=== PATIENT | female | born 2000 | race Caucasian/White ===

== ENCOUNTER 2019-02-12 12:19 | Emergency (ER) | payer OTHER ==
[2019-02-12] MEDS ORDERED: Famotidine IV* 10 MG/ML 2 ML (20 mg) ONE (12:27)
--- NOTE | 2019-02-12 12:45 | ED ---
Syncope/Near Syncope - HPI Summary HPI Summary: This patient is a 18 year old female presenting to [facility] with a chief complaint of weakness and rash since this morning. She states she felt disoriented and dizzy and felt like the ground was moving. She also reports she experienced skin diaphoresis, throat tightness and SOB. She denies numbness/tingling. She denies loss of consciousness. She states she has had a reaction like this to prednisone but does not know if she could have ingested anything to cause this episode. Pt denies any fever, chills, erythema of eyes, CP, cough, abdominal pain, N/V, dysuria, hematuria, myalgia, or edema. - History Of Current Complaint Chief Complaint: EDAllergicReaction Time Seen by Provider: 02/12/19 12:32 Hx Obtained From: Patient Onset/Duration: Lasting Hours - Allergies/Home Medications Allergies/Adverse Reactions: Allergies Allergy/AdvReac Type Severity Reaction Status Date / Time prednisone Allergy Difficulty Verified 02/12/19 12:22 Breathing Home Medications: Home Medications Unobtainable 02/12/19 [History Confirmed 02/12/19] PMH/Surg Hx/FS Hx/Imm Hx Cardiovascular History: Denies: Hx Coronary Artery Disease Respiratory History: Denies: Hx Chronic Obstructive Pulmonary Disease (COPD) Infectious Disease History: No Infectious Disease History: Denies: Traveled Outside the [place] in Last 30 Days - Family History Known Family History: Positive: Non-Contributory - Social History Occupation: Employed Full-time Alcohol Use: None Substance Use Type: Reports: None Smoking Status (MU): Never Smoked Tobacco Review of Systems Positive: Skin Diaphoresis. Negative: Fever, Chills Negative: Erythema Positive: Sore Throat Negative: Chest Pain Positive: Shortness Of Breath. Negative: Cough Negative: Abdominal Pain, Vomiting, Nausea Negative: dysuria, hematuria Negative: Myalgia, Edema Positive: Rash Neurological: Other - Dizziness Positive: Weakness, Syncope - Near-syncopal episdoe no LOC . Negative: Paresthesia, Numbness All Other Systems Reviewed And Are Negative: No Physical Exam - Summary Physical Exam Summary: Constitutional: Well-developed, Well-nourished, Alert. (-) Distressed Skin: Warm, Dry. No hives. HENT: Normocephalic; Atraumatic Eyes: Conjunctiva normal Neck: Musculoskeletal ROM normal neck. (-) JVD, (-) Stridor, (-) Tracheal deviation Cardio: Rhythm regular, rate normal, Heart sounds normal; Intact distal pulses; The pedal pulses are 2+ and symmetric. Radial pulses are 2+ and symmetric. (-) Murmur Pulmonary/Chest wall: Effort normal. (-) Respiratory distress, (-) Wheezes, (-) Rales. No stridor. Voice quality is normal. Abd: Soft. (-) Tenderness, (-) Distension, (-) Guarding, (-) Rebound Musculoskeletal: (-) Edema Lymph: (-) Cervical adenopathy Neuro: Alert, Oriented x3, Strength normal, Cranial nerves II-XII are grossly intact. (-) Dysmetria, (-) Nystagmus, (-) Ataxia by finger to nose testing, (-) Sensory deficit. Psych: Mood and affect Normal Triage Information Reviewed: Yes Vital Signs On Initial Exam: Initial Vitals Temp Pulse Resp BP Pulse Ox 98.5 F 89 20 137/87 100 02/12/19 12:23 02/12/19 12:23 02/12/19 12:23 02/12/19 12:23 02/12/19 12:23 Vital Signs Reviewed: Yes Diagnostics - Vital Signs Vital Signs Temp Pulse Resp BP Pulse Ox 02/12/19 12:23 98.5 F 89 20 137/87 100 - Laboratory Result Diagrams: 02/12/19 13:05 02/12/19 13:05 Lab Statement: Any lab studies that have been ordered have been reviewed, and results considered in the medical decision making process. - EKG 1259 Cardiac Rate: NL - 83 VPM EKG Rhythm: Sinus Rhythm Re-Evaluation - Re-Evaluation First Eval Re-Evaluation Time: 14:45 Change: Improved - feels better, informed she can't drive for another 1-2 hours. States she doesnt have anyone we can call fo ra ride. Her car is here. Course/Dx Course Of Treatment: This patient is a 18 year old female presenting to [facility] with a chief complaint of weakness and rash. I am unable to visualize a rash. there is no stridor. I do not suspect anaphylaxis. The patient describes hyperventilation symptoms. Also some symptoms of orthostasis. She reports a significant anxiety and panic attack history. CBC and chemistries nonactionable , no evidence for arrhythmia on EKG. - Diagnoses Provider Diagnoses: Dizziness, Anxiety Discharge ED - Sign-Out/Discharge Documenting (check all that apply): Patient Departure Patient Received Moderate/Deep Sedation with Procedure: No - Discharge Plan Condition: Good Disposition: HOME Patient Education Materials: Dizziness (ED), Anxiety (ED) Forms: *Work Release Referrals: [facility] [Outside] - 2 Days Additional Instructions: Return to the ER for changing or worsening condition. - Billing Disposition and Condition Condition: GOOD Disposition: Home - Attestation Statements Document Initiated by Scribe: Yes Documenting Scribe: Dontae Santiago Provider For Whom Scribe is Documenting (Include Credential): Chris Choudhary MD Scribe Attestation: Dontae Boo, scribed for Chris Choudhary MD on 02/18/19 at 1137. Scribe Documentation Reviewed: Yes Provider Attestation: The documentation as recorded by the Dontae lopez accurately reflects the service I personally performed and the decisions made by Chris pastor MD Status of Scribe Document: Viewed
[2019-02-12] MEDS ORDERED: Lorazepam PYXIS KEY PRN (12:49)
[2019-02-12] MEDS ORDERED: LORazepam INJ* 2 MG/ML 1 ML VIAL IV PUSH ONE (12:49)
[2019-02-12] MEDS ORDERED: diPHENhydraMINE IV* 50 MG/ML 1 ml VIAL (BENADRYL) IV ONE (12:49)
[2019-02-12] MEDS ORDERED: NS 0.9% 1000 ML** 1,000 ML IV ONE (12:49)
[2019-02-12 13:14] LABS: ABS Eosinophils 0.1 10^3/ul (0-0.6); ABS Lymphocytes 2.8 10^3/ul (1.0-4.8); ABS Monocytes 0.4 10^3/ul (0-0.8); Hematocrit 39 % (35-47); Lymphocyte % 44.1 %; Mean Corpuscular HGB Conc 33 g/dL (31-36); Mean Corpuscular Hemoglobin 28 pg (27-31); Mean Corpuscular Volume 82 fL (80-97); Mean Platelet Volume 8.2 fL (7.4-10.4); Platelet Count 298 10^3/uL (150-450); Red Blood Count 4.72 10^6 /uL (3.70-4.87); Red Cell Distribution Width 15 % (10-15); White Blood Count 6.3 10^3/uL (3.5-10.8)
[2019-02-12 13:32] LABS: Albumin 4.3 g/dL (3.2-5.2); Albumin/Globulin Ratio 1.5 (1-3); Calcium 9.2 mg/dL (8.6-10.3); EGFR African American 107.2 (>60); EGFR Non-African American 88.6 (>60); Globulin 2.8 g/dL (2-4); Potassium 3.9 mmol/L (3.5-5.0); Total Bilirubin 0.3 mg/dL (0.2-1.0); Total Protein 7.1 g/dL (6.4-8.9)
[2019-02-12 13:38] LABS: HCG Pregnancy 5.4 mIU/mL
[2019-02-12] MEDS ORDERED: Dexamethasone IV* 4 MG/ML 1 ML (4 MG) IV SLOW PU ONE (13:50)
[2019-02-12] MEDS ORDERED: guaiFENesin/CODIEN 100MG-10MG* 5 ML UDC PO ONE (13:51)
[2019-02-12] MEDS ORDERED: Magnesium Sulfate 2 GM IV* 2 GM/50 ML BAG IVPB ONE (13:51)
[2019-02-12 15:01] VITALS: BP 113/77
== END 2019-02-12 15:00 | disposition home or self-care (01) ==
LOC: ED 12:19
DX: R42 Dizziness and giddiness (principal); F41.9 Anxiety disorder, unspecified; R21 Rash and other nonspecific skin eruption; Z88.8 Allergy status to other drugs, medicaments and biological substances
CPT/HCPCS: 36415; 80053; 83605; 83690; 84702; 85025; 93005; 96361; 96374; 96375; 99284; J1200; J2060

== ENCOUNTER 2019-03-06 22:24 | Emergency (ER) | payer BC, OTHER ==
[2019-03-06] MEDS ORDERED: Lidocaine 2% VISCOUS* 15 ML UDC PO ONE (22:59)
--- NOTE | 2019-03-06 23:00 | ED ---
Influenza-Like Illness - HPI Summary HPI Summary: Patient complains of fever up to 102, sore throat, weakness, chills, sweats, DELANEY , nausea 3 days. Patient seen at urgent care today, negative for flu, negative for strep. Patient presents to the ED stating she thinks she is Serious infection. Patient took ibuprofen 800 mg at 9:40 PM. Denies cough, ear pain, neck pain, CP, SOB, V/V abdominal pain, change in urine, change in BM , vaginal symptoms. Medical history is none. - History of Current Complaint Chief Complaint: EDFever Time Seen by Provider: 03/06/19 22:58 Hx Obtained From: Patient Onset/Duration: Gradual Onset, Lasting Days Severity: Moderate Associated Signs & Symptoms: Fever, Myalgia, Sore Throat - Allergy/Home Medications Allergies/Adverse Reactions: Allergies Allergy/AdvReac Type Severity Reaction Status Date / Time prednisone Allergy Difficulty Verified 03/06/19 22:29 Breathing PMH/Surg Hx/FS Hx/Imm Hx Endocrine/Hematology History: Denies: Hx Anticoagulant Therapy Cardiovascular History: Denies: Hx Coronary Artery Disease, Hx Pacemaker/ICD Respiratory History: Denies: Hx Chronic Obstructive Pulmonary Disease (COPD) History: Denies: Hx Dialysis Sensory History: Denies: Hx Eye Prosthesis Opthamlomology History: Denies: Hx Legally Blind EENT History: Denies: Hx Deafness Neurological History: Denies: Hx Developmental Delay Infectious Disease History: No Infectious Disease History: Denies: Traveled Outside the [place] in Last 30 Days - Family History Known Family History: Positive: Non-Contributory - Social History Alcohol Use: None Substance Use Type: Reports: None Smoking Status (MU): Never Smoked Tobacco Review of Systems Positive: Fever, Chills Positive: Sore Throat Cardiovascular: Negative Respiratory: Negative Positive: Nausea Genitourinary: Negative Positive: Myalgia Skin: Negative Positive: Headache Psychological: Normal All Other Systems Reviewed And Are Negative: Yes Physical Exam Triage Information Reviewed: Yes Vital Signs On Initial Exam: Initial Vitals Temp Pulse Resp BP Pulse Ox 97.7 F 84 15 117/76 100 03/06/19 22:27 03/06/19 22:27 03/06/19 22:27 03/06/19 22:27 03/06/19 22:27 Vital Signs Reviewed: Yes Appearance: Positive: Well-Appearing Skin: Positive: Warm Head/Face: Positive: Normal Head/Face Inspection Eyes: Positive: Normal ENT: Positive: Pharyngeal erythema, Uvula midline. Negative: Tonsillar exudate , Trismus, Muffled voice, Hoarse voice, Dental tenderness, Sinus tenderness Neck: Positive: Supple Respiratory/Lung Sounds: Positive: Clear to Auscultation Cardiovascular: Positive: Normal Abdomen Description: Positive: Nontender Musculoskeletal: Positive: Normal Neurological: Positive: Normal Psychiatric: Positive: Normal AVPU Assessment: Alert - [place] Coma Scale Best Eye Response: 4 - Spontaneous Best Motor Response: 6 - Obeys Commands Best Verbal Response: 5 - Oriented Coma Scale Total: 15 Procedures - Sedation Patient Received Moderate/Deep Sedation with Procedure: No Diagnostics - Vital Signs Vital Signs Temp Pulse Resp BP Pulse Ox 03/06/19 22:27 97.7 F 84 15 117/76 100 - Laboratory Result Diagrams: 03/06/19 23:14 03/06/19 23:14 Lab Statement: Any lab studies that have been ordered have been reviewed, and results considered in the medical decision making process. Flu Symptom Course/Dx - Course Course Of Treatment: Patient complains of fever up to 102, sore throat, weakness , chills, sweats, DELANEY, nausea 3 days. Patient seen at urgent care today, negative for flu, negative for strep. Patient presents to the ED stating she thinks she is Serious infection. Patient took ibuprofen 800 mg at 9:40 PM. Denies cough, ear pain, neck pain, CP, SOB, V/V abdominal pain, change in urine , change in BM, vaginal symptoms. Medical history is none. Vital signs within normal limits. WBC 12.1. CRP 191. Labs otherwise unremarkable. Harmon negative. Discussed patient with attending Dr. Paige who agreed patient to be discharged home with symptomatic treatment. Diagnosis viral syndrome. - Diagnoses Provider Diagnoses: Viral syndrome Discharge ED - Sign-Out/Discharge Documenting (check all that apply): Patient Departure - Discharge Plan Condition: Stable Disposition: HOME Prescriptions: Lidocaine 2% VISCOUS* [Xylocaine 2% Viscous*] 15 ml SWISH SPIT Q6H PRN #1 btl PRN Reason: Pain - Moderate Ondansetron ODT TAB* [Zofran 4 MG Odt TAB*] 4 mg PO Q8H PRN 4 Days #14 tab.odt PRN Reason: Nausea Patient Education Materials: Viral Syndrome (ED) Referrals: No Primary Care Phys,NOPCP [Primary Care Provider] - Additional Instructions: Alternate ibuprofen 600 mg with Tylenol 650 mg every 3 hours as needed for headache and fever. Take Zofran as directed for nausea if needed. Use lidocaine as directed for sore throat pain if needed. Drink plenty of fluids. Rest. Follow-up with primary care. - Billing Disposition and Condition Condition: STABLE Disposition: Home
[2019-03-06 23:51] LABS: ABS Eosinophils 0.3 10^3/ul (0-0.6); ABS Lymphocytes 2.2 10^3/ul (1.0-4.8); ABS Monocytes 1.2 10^3/ul (0-0.8); ABS Neutrophils 8.3 10^3/ul (1.5-7.7); Eosinophil % 2.4 %; Hematocrit 40 % (35-47); Mean Corpuscular HGB Conc 33 g/dL (31-36); Mean Corpuscular Hemoglobin 27 pg (27-31); Mean Corpuscular Volume 83 fL (80-97); Mean Platelet Volume 9.3 fL (7.4-10.4); Platelet Count 184 10^3/uL (150-450); Red Cell Distribution Width 14 % (10-15); White Blood Count 12.1 10^3/uL (3.5-10.8)
[2019-03-07 00:06] LABS: Albumin 3.8 g/dL (3.2-5.2); Albumin/Globulin Ratio 1.4 (1-3); BUN/Creatinine Ratio 9.9 (8-20); C Reactive Protein 191.39 mg/L (<8.01); Calcium 8.9 mg/dL (8.6-10.3); EGFR African American 128.3 (>60); Globulin 2.7 g/dL (2-4); Potassium 3.5 mmol/L (3.5-5.0); Total Bilirubin 0.3 mg/dL (0.2-1.0); Total Protein 6.5 g/dL (6.4-8.9)
[2019-03-07] MEDS ORDERED: Ondansetron ODT TAB* 4 MG PO ONE (00:27)
[2019-03-07 00:49] LABS: HIV 4th Generation Nonreactive (Nonreactive)
[2019-03-07 00:59] VITALS: BP 95/53
== END 2019-03-07 00:41 | disposition home or self-care (01) ==
LOC: ED 22:24
DX: B34.9 Viral infection, unspecified (principal); J02.9 Acute pharyngitis, unspecified; R53.1 Weakness; R51 Headache
CPT/HCPCS: 36415; 80053; 83605; 85025; 86140; 86308; 87389; 99283; A9270-GY

== ENCOUNTER 2019-06-01 02:47 | Emergency (ER) | payer BC, OTHER ==
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
[2019-06-01] MEDS ORDERED: Ibuprofen TAB* 400 MG PO ONE (03:24)
[2019-06-01 04:08] VITALS: BP 121/79
== END 2019-06-01 04:07 | disposition home or self-care (01) ==
LOC: ED 02:47
DX: S39.012A Strain of muscle, fascia and tendon of lower back, initial encounter (principal); X58.XXXA Exposure to other specified factors, initial encounter; Y93.F9 Activity, other caregiving; Y92.230 Patient room in hospital as the place of occurrence of the external cause; Y99.0 Civilian activity done for income or pay; Z88.8 Allergy status to other drugs, medicaments and biological substances
CPT/HCPCS: 99282; A9270-GY